=== PATIENT | male | born 1980 | race Caucasian/White ===

== ENCOUNTER 2020-05-15 05:27 | Emergency (ER) | payer OTHER ==
[~2020-05-15] VITALS: Ht 180.3 cm; Wt 97.5 kg
== END 2020-05-15 06:43 | disposition home or self-care (01) ==
LOC: ER 05:27
DX: S61.211A Laceration without foreign body of left index finger without damage to nail, initial encounter (principal); W45.8XXA Other foreign body or object entering through skin, initial encounter
CPT/HCPCS: 12002; 99282-25